=== PATIENT | male | born 1985 | race African-American/Black ===

== ENCOUNTER 2017-12-31 17:42 | Emergency (ER) | payer OTHER ==
[~2017-12-31] VITALS: Ht 177.8 cm; Wt 72.1 kg
[2017-12-31 17:46] VITALS: BP 156/101; Ht 177.8 cm; Wt 72.1 kg
== END 2017-12-31 19:00 | disposition home or self-care (01) ==
LOC: ED 17:42
DX: M79.672 Pain in left foot (principal); M79.671 Pain in right foot; Z88.0 Allergy status to penicillin; Z88.2 Allergy status to sulfonamides
CPT/HCPCS: 82962

== ENCOUNTER 2018-04-30 02:58 | Emergency (ER) | payer OTHER ==
[2018-04-30 06:30] VITALS: BP 137/86
== END 2018-04-30 06:30 | disposition home or self-care (01) ==
LOC: ED 02:58
DX: L84 Corns and callosities (principal); Z88.0 Allergy status to penicillin; Z88.2 Allergy status to sulfonamides
CPT/HCPCS: J1885

== ENCOUNTER 2018-04-30 12:19 | Emergency (ER) | payer OTHER ==
[~2018-04-30] VITALS: Ht 177.8 cm; Wt 77.6 kg
[2018-04-30 12:23] VITALS: BP 146/100; Ht 177.8 cm; Wt 77.6 kg
== END 2018-04-30 13:05 | disposition left against medical advice (07) ==
LOC: ED 12:19
DX: Z53.21 Procedure and treatment not carried out due to patient leaving prior to being seen by health care provider (principal)